=== PATIENT | female | born 1965 | race Caucasian/White ===

== ENCOUNTER 2020-09-19 14:35 | Emergency (ER) | payer BC ==
[2020-09-19 16:29] LABS: HEMOGLOBIN 13.5 gm/dl (12.3-15.3); RED BLOOD COUNT 4.94 M/UL (4.00-5.10); WHITE BLOOD COUNT 6.3 K/UL (4.5-11.0)
[2020-09-19 16:56] LABS: BUN/CREATININE RATIO 19 (0-10)
== END 2020-09-19 17:42 | disposition home or self-care (01) ==
LOC: ER1 14:35
PROVIDERS: Family Medicine
DX: H81.10 Benign paroxysmal vertigo, unspecified ear (principal); I10 Essential (primary) hypertension
CPT/HCPCS: 70450; 80053; 82550; 82553; 83874; 84484; 85025; 93005; 99284